=== PATIENT | male | born 1940 | race Caucasian/White ===

== ENCOUNTER 2023-01-02 13:38 | Emergency (ER) | payer MEDICARE ==
[2023-01-02] MEDS ORDERED: Acetaminophen 500 MG TAB ONE (15:44)
[2023-01-02] MEDS ORDERED: Dexamethasone 10 MG/ML VIAL ONE (16:24)
[2023-01-02 17:10] LABS: SARS-CoV-2 NAA Rapid Test DETECTED (NotDetected)
== END 2023-01-02 17:15 | disposition home or self-care (01) ==
LOC: CSHERS 13:38
DX: U07.1 COVID-19 (principal); J02.9 Acute pharyngitis, unspecified; Z87.891 Personal history of nicotine dependence; E11.9 Type 2 diabetes mellitus without complications; I10 Essential (primary) hypertension
CPT/HCPCS: 0240U; 87081; 87430; 99284; J1100